=== PATIENT | female | born 1995 | race Two or more races ===

== ENCOUNTER 2018-06-06 17:43 | Emergency (ER) | payer SELFPAY ==
[~2018-06-06] VITALS: Ht 165.1 cm; Wt 94.3 kg
[2018-06-06 17:50] VITALS: BP 118/77
[2018-06-06 18:22] LABS: Basophils # (auto) 0 uL; Basophils % (auto) 0.3 % (0.0-2.0); Eosinophils # (auto) 0.1 uL; Hematocrit 40.2 % (36.0-46.0); Hemoglobin 14.2 g/dL (12.2-16.2); Lymphocytes # (auto) 2.6 uL; Lymphocytes % (auto) 27.8 % (10.0-50.0); Mean Corpuscular Hgb Conc. 35.3 g/dL (32.0-36.0); Mean Corpuscular Volume 87.9 fL (80.0-100.0); Monocytes # (auto) 0.7 uL; Monocytes % (auto) 7.6 % (0.0-12.0); Neutrophils # (auto) 5.9 uL; Neutrophils % (auto) 63.3 % (37.0-80.0); Nucleated Red Blood Cells % 0.1 %; Platelet Count (auto) 297 10^3/uL (140-450); Red Blood Cells 4.58 10^6/uL (4.0-5.20); Red Cell Distribution Width 13.4 % (11.8-14.3); White Blood Cell 9.3 10^3/uL (4.4-10.8)
[2018-06-06 18:46] LABS: Albumin 4.4 g/dL (3.4-5.0); Anion Gap 7 (5-15); Blood Urea Nitrogen 7 mg/dL (7-18); Calcium 8.9 mg/dL (8.5-10.1); Carbon Dioxide 24 mmol/L (21-32); Chloride 109 mmol/L (98-107); Glucose 80 mg/dL (74-106); Potassium 4.2 mmol/L (3.5-5.1); Sodium 140 mmol/L (136-145)
[2018-06-06 18:49] LABS: Alanine Aminotransferase 24 U/L (13-56); Aspartate Aminotransferase 16 U/L (15-37); BUN/Creatinine Ratio 11.7; GFR African American 164 mL/min; GFR Non-African American 135 mL/min
[2018-06-06 18:54] LABS: Alkaline Phosphatase 84 U/L (45-117); Bilirubin, Total 0.4 mg/dL (0.2-1.0); Total Protein 8.3 g/dL (6.4-8.2)
[2018-06-06 20:31] LABS: Urine Bacteria FEW /hpf (None Seen); Urine Blood TRACE /uL (Negative); Urine Mucus FEW (None Seen); Urine Specific Gravity 1.017 (1.001-1.035); Urine WBC 9 /hpf (0 - 5)
== END 2018-06-07 02:30 | disposition left against medical advice (07) ==
LOC: ER 17:57
DX: R07.89 Other chest pain (principal); Z53.21 Procedure and treatment not carried out due to patient leaving prior to being seen by health care provider
CPT/HCPCS: 36415; 71045; 80053; 81001; 84484; 84702; 85025; 93005

== ENCOUNTER 2023-02-21 21:37 | Emergency (ER) | payer MEDICAID, OTHER ==
[~2023-02-21] VITALS: Ht 157.5 cm; Wt 108.2 kg
[2023-02-22] MEDS ORDERED: CIPR1SUS8 OT (01:11)
[2023-02-22] MEDS ORDERED: IBUP-1456 PO ×2 (01:11)
[2023-02-22] MEDS ORDERED: ACET500T58 PO (01:13)
[2023-02-22] MEDS ORDERED: cefTRIAXone SOD 1,000 MG VL IM ONE (01:15)
[2023-02-22] MEDS ORDERED: KETOROLAC TROMETH 60MG/2ML VIAL IM ONE (01:15)
[2023-02-22 01:51] VITALS: BP 137/82; PULSE 85; RESP 16; TEMP 98; O2SAT 98
== END 2023-02-22 02:05 | disposition home or self-care (01) ==
LOC: ER 21:37 → EEVIPCON 21:37 → ER 02-22 01:51
DX: H60.92 Unspecified otitis externa, left ear (principal); Z79.2 Long term (current) use of antibiotics; Z79.899 Other long term (current) drug therapy
CPT/HCPCS: 96372; 99283; J0696

== ENCOUNTER 2023-02-24 20:53 | Emergency (ER) | payer MEDICAID ==
[~2023-02-24] VITALS: Ht 165.1 cm; Wt 104.5 kg
[~2023-02-24 20:53] MED LIST: ACET500T58 PO; CIPR1SUS8 OT
[2023-02-24 21:10] VITALS: BP 108/65; O2SAT 98
[2023-02-24] MEDS ORDERED: COROSUS LEFT EAR (21:51)
[2023-02-24] MEDS ORDERED: AUG875T PO (21:51)
[2023-02-24] MEDS ORDERED: AMOXICILLIN/CLAVUL 875 MG TAB PO ONE (22:00)
[2023-02-24 23:02] VITALS: PULSE 83; RESP 18
== END 2023-02-25 21:51 | disposition home or self-care (01) ==
LOC: EEVIPCON 20:53 → ER 20:53
DX: H60.92 Unspecified otitis externa, left ear (principal); Z79.2 Long term (current) use of antibiotics; Z79.899 Other long term (current) drug therapy

== ENCOUNTER 2024-09-01 05:50 | Emergency (ER) | payer MEDICAID, OTHER ==
[~2024-09-01] VITALS: Ht 165.1 cm; Wt 110.5 kg
[~2024-09-01 05:50] MED LIST changes: +AUG875T PO; +COROSUS LEFT EAR
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
[2024-09-01 08:46] LABS: Urine Protein, UAD Negative (Negative)
[2024-09-01] MEDS ORDERED: IBUP-1454 PO (09:03)
[2024-09-01] MEDS ORDERED: CYCL-837 PO (09:03)
[2024-09-01 09:13] VITALS: BP 134/82; PULSE 83; RESP 18; TEMP 98; O2SAT 98
== END 2024-09-01 09:10 | disposition home or self-care (01) ==
LOC: EEVIPCON 05:50 → ER 05:50
DX: M54.50 Low back pain, unspecified (principal); J45.909 Unspecified asthma, uncomplicated; Z98.890 Other specified postprocedural states; Z79.899 Other long term (current) drug therapy
CPT/HCPCS: 81001; 81025